=== PATIENT | male | born 1955 | race American Indian/Alaskan Native ===

== ENCOUNTER 2019-01-06 17:49 | Emergency (ER) | payer SELFPAY ==
--- NOTE | 2019-01-06 17:55 | Emergency Department Report ---
Blank Doc - Documentation Documentation: This is a 63-year-old male that presents with abdominal pain with radiation to back. This initial assessment/diagnostic orders/clinical plan/treatment(s) is/are subject to change based on patient's health status, clinical progression and re- assessment by fellow clinical providers in the ED. Further treatment and workup at subsequent clinical providers discretion. Patient/guardians urged not to elope from the ED as their condition may be serious if not clinically assessed and managed. Initial orders include: 1- Patient sent to main ed for further evaluation and treatment 2- labs 3- UA
[2019-01-06 17:57] VITALS: BP 136/80
[2019-01-06 18:28] LABS: Basophils % (Auto) 0.4 % (0.0-1.8); Eosinophils # (Auto) 0.3 K/mm3 (0.0-0.4); Eosinophils % (Auto) 2.8 % (0.0-4.3); Hematocrit 39.9 % (35.5-45.6); Hemoglobin 13.4 gm/dl (11.8-15.2); Lymphocytes # (Auto) 3.9 K/mm3 (1.2-5.4); Lymphocytes % (Auto) 39.3 % (13.4-35.0); Mean Corpuscular HGB Conc 34 % (32-34); Mean Corpuscular Volume 92 fl (84-94); Monocytes % (Auto) 10.1 % (0.0-7.3); Platelet Count 193 K/mm3 (140-440); Red Blood Count 4.32 M/mm3 (3.65-5.03); Red Cell Distribution Width 13.9 % (13.2-15.2)
[2019-01-06 18:44] LABS: Alanine Aminotransferase 10 units/L (7-56); Albumin 4.1 g/dL (3.9-5); BUN/Creatinine Ratio 18; Blood Urea Nitrogen 11 mg/dL (9-20); Calcium 9.6 mg/dL (8.4-10.2); Hemolysis Index 13
--- NOTE | 2019-01-06 21:52 | Emergency Department Report ---
ED General Adult HPI - General Chief complaint: Abdominal Pain Stated complaint: ABD PAIN Time Seen by Provider: 01/06/19 17:54 Source: patient, family Mode of arrival: Ambulatory Limitations: No Limitations - History of Present Illness Initial comments: She is a 63-year-old male that presents emergency room with complaints of abdominal pain. Patient states his abdominal pain started 2 days ago. Patient states is worsening. Patient states abdominal pain is a 6 out of 10. Patient states it's around the PEG tube. Patient denies redness around the PEG tube. Patient states he has not used the PEG tube because he is eating. . Patient states not seen a optical coating technician for the PEG tube yet. Patient denies fever and chills. Patient denies diarrhea. Patient denies nausea or vomiting. She also complains of seizure. Patient is not compliant with his medications. Patient states he ran out of all his medications one week ago. Patient states he has not seen a primary care since being discharged from the hospital in November. -: Sudden Location: abdomen Radiation: non-radiation Severity scale (0 -10): 6 Quality: aching Consistency: constant Improves with: rest Worsens with: movement Associated Symptoms: seizure. denies: confusion, chest pain, cough, diaphoresis, fever/chills, headaches, loss of appetite, malaise, nausea/vomiting, rash, shortness of breath, syncope, weakness - Related Data Previous Rx's Medication Instructions Recorded Last Taken Type levETIRAcetam [Keppra TAB] 500 mg PO BID #60 tablet 06/16/18 Unknown Rx Apixaban [Eliquis] 5 mg PO Q12HR #60 tablet 11/15/18 Unknown Rx Ipratropium/Albuterol Sulfate 1 ampul IH Q6HRT #120 ampul.neb 11/15/18 Unknown Rx [DUONEB *Not for PRN Use*] QUEtiapine [SEROquel] 50 mg PO BID 30 Days tablet 11/15/18 Unknown Rx QUEtiapine [SEROquel] 100 mg PO QHS #30 tablet 11/15/18 Unknown Rx dilTIAZem [Cardizem] 30 mg PO Q8HR #90 tablet 11/15/18 Unknown Rx guaiFENesin [Robitussin] 200 mg PO Q4H PRN 10 Days 11/15/18 Unknown Rx oral.liqd levETIRAcetam [Keppra TAB] 500 mg PO BID #60 tablet 11/15/18 Unknown Rx Allergies Allergy/AdvReac Type Severity Reaction Status Date / Time No Known Allergies Allergy Unverified 09/21/14 13:27 ED Review of Systems ROS: Stated complaint: ABD PAIN Other details as noted in HPI Constitutional: denies: chills, fever Eyes: denies: eye pain, eye discharge, vision change ENT: denies: ear pain, throat pain Respiratory: denies: cough, shortness of breath, wheezing Cardiovascular: denies: chest pain, palpitations Endocrine: no symptoms reported Gastrointestinal: abdominal pain. denies: nausea, diarrhea Genitourinary: denies: urgency, dysuria Musculoskeletal: denies: back pain, joint swelling, arthralgia Skin: denies: rash, lesions Neurological: denies: headache, weakness, paresthesias Psychiatric: denies: anxiety, depression Hematological/Lymphatic: denies: easy bleeding, easy bruising ED Past Medical Hx - Past Medical History Previous Medical History?: Yes Hx Deep Vein Thrombosis: No Hx Seizures: Yes - Surgical History Past Surgical History?: Yes Hx Pacemaker: No Hx Internal Defibrillator: No Additional Surgical History: right arm. PEG placement - Family History Family history: no significant - Social History Smoking Status: Current Every Day Smoker Substance Use Type: Alcohol - Medications Home Medications: Home Medications Medication Instructions Recorded Confirmed Last Taken Type levETIRAcetam [Keppra TAB] 500 mg PO BID #60 tablet 06/16/18 09/20/18 Unknown Rx Apixaban [Eliquis] 5 mg PO Q12HR #60 tablet 11/15/18 Unknown Rx Ipratropium/Albuterol Sulfate 1 ampul IH Q6HRT #120 ampul.neb 11/15/18 Unknown Rx [DUONEB *Not for PRN Use*] QUEtiapine [SEROquel] 50 mg PO BID 30 Days tablet 11/15/18 Unknown Rx QUEtiapine [SEROquel] 100 mg PO QHS #30 tablet 11/15/18 Unknown Rx dilTIAZem [Cardizem] 30 mg PO Q8HR #90 tablet 11/15/18 Unknown Rx guaiFENesin [Robitussin] 200 mg PO Q4H PRN 10 Days 11/15/18 Unknown Rx oral.liqd levETIRAcetam [Keppra TAB] 500 mg PO BID #60 tablet 11/15/18 Unknown Rx ED Physical Exam - General Limitations: No Limitations General appearance: alert, in no apparent distress - Head Head exam: Present: atraumatic, normocephalic - Eye Eye exam: Present: normal appearance - ENT ENT exam: Present: mucous membranes moist - Neck Neck exam: Present: normal inspection - Respiratory Respiratory exam: Present: normal lung sounds bilaterally. Absent: respiratory distress - Cardiovascular Cardiovascular Exam: Present: regular rate, normal rhythm. Absent: systolic murmur, diastolic murmur, rubs, gallop - GI/Abdominal GI/Abdominal exam: Present: soft, tenderness (tenderness around PEG tube and left upper quadrant), normal bowel sounds - Rectal Rectal exam: Present: deferred - Extremities Exam Extremities exam: Present: normal inspection - Back Exam Back exam: Present: normal inspection - Neurological Exam Neurological exam: Present: alert, oriented X3 - Psychiatric Psychiatric exam: Present: normal affect, normal mood - Skin Skin exam: Present: warm, dry, intact, normal color. Absent: rash ED Course Vital Signs 01/06/19 17:54 Temperature 99.2 F Pulse Rate 85 Respiratory 18 Rate Blood Pressure 136/80 [Left] O2 Sat by Pulse 99 Oximetry - Reevaluation(s) Reevaluation #1: Patient refused CT. Patient states is only here to have his PEG tube removed. Patient wants to leave the hospital. Patient signed AMA form. I explained risks to patient leaving the hospital AGAINST MEDICAL ADVICE. Patient voiced understanding. Patient is of sound mind and body. Patient is leaving the hospital AGAINST MEDICAL ADVICE. 01/06/19 23:01 ED Medical Decision Making - Lab Data Result diagrams: 01/06/19 18:04 01/06/19 18:04 - Medical Decision Making Is a 63-year-old male that presents emergency room with complaints of abdominal pain. Patient's abdominal pain around days PEG tube and left upper quadrant. Patient refused CT evaluation. Patient stated he only came to the emergency room to have his PEG tube removed. I informed the patient that we are not able to PEG tube he needs to see a optical coating technician. Patient left the hospital AGAINST MEDICAL ADVICE. I discussed the risks fully with patient. Patient voiced understanding of risks. Patient signed AMA form. Patient's labs unremarkable. H also presented to the hospital for seizure activity. Patient has history of seizure. Patient has not been compliant with his medications. - Differential Diagnosis PEG tube tenderness. Gastritis. Abdominal pain. Critical care attestation.: If time is entered above; I have spent that time in minutes in the direct care o f this critically ill patient, excluding procedure time. ED Disposition Clinical Impression: Seizure, Noncompliance Abdominal pain Qualifiers: Abdominal location: left upper quadrant Qualified Code(s): R10.12 - Left upper quadrant pain Pain around PEG tube site Qualifiers: Encounter type: initial encounter Qualified Code(s): T85.848A - Pain due to other internal prosthetic devices, implants and grafts, initial encounter Disposition: LEFT AGAINST MED ADVICE Is pt being admited?: No Does the pt Need Aspirin: No Condition: Stable Instructions: Percutaneous Endoscopic Gastrostomy Insertion (GEN) Additional Instructions: patient to follow-up with primary care in 2-3 days. Patient to return to ER if condition worsens. Patient to follow up with GI as soon as possible. Patient to rest. Patient to increase water. Referrals: PRIMARY CARE [Primary Care Provider] - 2-3 Days Forms: AMA Form Time of Disposition: 23:15
== END 2019-01-06 23:22 | disposition left against medical advice (07) ==
LOC: ED 17:49
DX: T85.848A Pain due to other internal prosthetic devices, implants and grafts, initial encounter (principal); R10.12 Left upper quadrant pain; R56.9 Unspecified convulsions; F17.200 Nicotine dependence, unspecified, uncomplicated; Y92.89 Other specified places as the place of occurrence of the external cause
CPT/HCPCS: 36415; 80053; 83690; 85025

== ENCOUNTER 2019-10-09 15:41 | Emergency (ER) | payer SELFPAY ==
[2019-10-09] MEDS ORDERED: SODIUM CHLORIDE 0.9% 1000 ML 1,000 ML IV ONE (17:04)
[2019-10-09] MEDS ORDERED: levETIRAcetam 1000 MG/NS 0.75% 1,000 MG/100 ML BAG IV ONE (17:04)
--- NOTE | 2019-10-09 17:10 | Emergency Department Report ---
ED Seizure HPI - General Chief Complaint: Seizure Stated Complaint: SEIZURES Time Seen by Provider: 10/09/19 17:02 Source: patient Mode of arrival: Ambulatory Limitations: No Limitations - History of Present Illness Initial Comments: Patient is 64 years old male with history of seizure. Patient brought to the emergency room via EMS from a parking lot of a gas station after patient started having a seizure witnessed by bystander. EMS stated that when arrived patient was postictal. Patient is currently alert and oriented. Patient stated that he is homeless. He said he is not taking any medication. I reviewed patient records from his last admission. Patient was admitted at bedtime for bilateral pneumonia with acute respiratory failure that required intubation. Patient have a PEG tube in place but stated that he is not using it much. Patient denied any fever or chills. He also denied any chest pain, shortness of breath, cough, runny nose or congestion. MD Complaint: seizure -: Sudden Description of Episode: loss of consciousness, tonic-clonic movement, post-event confusion Witnessed:: Yes Seizure History: known seizure disorder Place: street/outdoors - Related Data Previous Rx's Medication Instructions Recorded Last Taken Type levETIRAcetam [Keppra TAB] 500 mg PO BID #60 tablet 06/16/18 Unknown Rx Apixaban [Eliquis] 5 mg PO Q12HR #60 tablet 11/15/18 Unknown Rx Ipratropium/Albuterol Sulfate 1 ampul IH Q6HRT #120 ampul.neb 11/15/18 Unknown Rx [DUONEB *Not for PRN Use*] QUEtiapine [SEROquel] 50 mg PO BID 30 Days tablet 11/15/18 Unknown Rx QUEtiapine [SEROquel] 100 mg PO QHS #30 tablet 11/15/18 Unknown Rx dilTIAZem [Cardizem] 30 mg PO Q8HR #90 tablet 11/15/18 Unknown Rx guaiFENesin [Robitussin] 200 mg PO Q4H PRN 10 Days 11/15/18 Unknown Rx oral.liqd levETIRAcetam [Keppra TAB] 500 mg PO BID #60 tablet 11/15/18 Unknown Rx Allergies Allergy/AdvReac Type Severity Reaction Status Date / Time No Known Allergies Allergy Unverified 09/21/14 13:27 ED Review of Systems ROS: Stated complaint: SEIZURES Other details as noted in HPI Comment: All other systems reviewed and negative Constitutional: denies: chills, fever Respiratory: denies: cough, shortness of breath, SOB with exertion, SOB at rest, wheezing Cardiovascular: denies: chest pain, palpitations Gastrointestinal: denies: abdominal pain, nausea, vomiting, diarrhea, constipation, hematemesis, melena, hematochezia Musculoskeletal: denies: back pain Neurological: denies: headache, weakness, numbness, paresthesias, confusion, abnormal gait ED Past Medical Hx - Past Medical History Previous Medical History?: Yes Hx Deep Vein Thrombosis: No Hx Seizures: Yes - Surgical History Past Surgical History?: Yes Hx Pacemaker: No Hx Internal Defibrillator: No Additional Surgical History: right arm. PEG placement - Social History Smoking Status: Never Smoker Substance Use Type: None - Medications Home Medications: Home Medications Medication Instructions Recorded Confirmed Last Taken Type levETIRAcetam [Keppra TAB] 500 mg PO BID #60 tablet 06/16/18 09/20/18 Unknown Rx Apixaban [Eliquis] 5 mg PO Q12HR #60 tablet 11/15/18 Unknown Rx Ipratropium/Albuterol Sulfate 1 ampul IH Q6HRT #120 ampul.neb 11/15/18 Unknown Rx [DUONEB *Not for PRN Use*] QUEtiapine [SEROquel] 50 mg PO BID 30 Days tablet 11/15/18 Unknown Rx QUEtiapine [SEROquel] 100 mg PO QHS #30 tablet 11/15/18 Unknown Rx dilTIAZem [Cardizem] 30 mg PO Q8HR #90 tablet 11/15/18 Unknown Rx guaiFENesin [Robitussin] 200 mg PO Q4H PRN 10 Days 11/15/18 Unknown Rx oral.liqd levETIRAcetam [Keppra TAB] 500 mg PO BID #60 tablet 11/15/18 Unknown Rx ED Physical Exam - General Limitations: No Limitations General appearance: alert, in no apparent distress - Head Head exam: Present: atraumatic, normocephalic, normal inspection - Eye Eye exam: Present: normal appearance - ENT ENT exam: Present: normal exam, normal orophraynx, mucous membranes moist - Neck Neck exam: Present: normal inspection, full ROM, other (Tracheostomy scar.). Absent: tenderness, meningismus - Respiratory Respiratory exam: Present: normal lung sounds bilaterally - Cardiovascular Cardiovascular Exam: Present: regular rate, normal rhythm, normal heart sounds - GI/Abdominal GI/Abdominal exam: Present: soft, normal bowel sounds, other (PEG tube in place, no erythema or discharge.). Absent: distended, tenderness, guarding, rebound, rigid, organomegaly, mass, bruit, pulsatile mass, hernia - Extremities Exam Extremities exam: Present: normal inspection, full ROM, normal capillary refill - Back Exam Back exam: Present: normal inspection, full ROM. Absent: CVA tenderness (R), CVA tenderness (L) - Neurological Exam Neurological exam: Present: alert, oriented X3, CN II-XII intact ED Course Vital Signs 10/09/19 16:10 Temperature 97.4 F L Pulse Rate 88 Respiratory 16 Rate Blood Pressure 140/85 [Right] O2 Sat by Pulse 97 Oximetry Critical care attestation.: If time is entered above; I have spent that time in minutes in the direct care of this critically ill patient, excluding procedure time. ED Disposition Clinical Impression: Seizure Disposition: [id number] LEFT AGAINST MED ADVICE Is pt being admited?: No Condition: Stable Referrals: PRIMARY CARE, [Primary Care Provider] - 3-5 Days Forms: AMA Form
[2019-10-09 17:24] VITALS: BP 140/85
== END 2019-10-09 18:02 | disposition left against medical advice (07) ==
LOC: ED 15:41
DX: R56.9 Unspecified convulsions (principal); Z79.899 Other long term (current) drug therapy
CPT/HCPCS: 70450; 71045; 93005; 99284; J1953; J7030

== ENCOUNTER 2020-01-12 23:40 | Emergency (ER) | payer SELFPAY ==
[2020-01-13 03:38] LABS: Basophils # (Auto) 0.1 K/mm3 (0.0-0.1); Basophils % (Auto) 0.8 % (0.0-1.8); Eosinophils # (Auto) 0.1 K/mm3 (0.0-0.4); Eosinophils % (Auto) 2.1 % (0.0-4.3); Hematocrit 42.3 % (35.5-45.6); Lymphocytes # (Auto) 3.1 K/mm3 (1.2-5.4); Lymphocytes % (Auto) 45.4 % (13.4-35.0); Mean Corpuscular HGB Conc 33 % (32-34); Mean Corpuscular Volume 103 fl (84-94); Monocytes # (Auto) 0.6 K/mm3 (0.0-0.8); Monocytes % (Auto) 8.6 % (0.0-7.3); Platelet Count 168 K/mm3 (140-440); Red Blood Count 4.12 M/mm3 (3.65-5.03)
--- NOTE | 2020-01-13 03:45 | Cat Scan Report ---
CT HEAD WITHOUT CONTRAST HISTORY: Patient states he fell today. COMPARISON: 10/09/2019 TECHNIQUE: CT imaging of the head was performed in the axial, sagittal, and coronal projections and bone algori thm in axial projection in the soft tissue algorithm. All CT scans at this location are performed using CT dose reduction for ALARA by means of automated e xposure control. CONTRAST: None. FINDINGS: Cerebral and Cerebellar Hemispheres: No evidence of mass or mass effect. No midline shift. No acute hemorrhage. No acute cortical infarction. No extra-axial fluid collection. Ventricles: Normal in size and configuration for age. Osseous Structures: No significant abnormality. Visualized Paranasal Sinuses: No significant abnormality. Additional Findings: None IMPRESSION: 1. No acute intracranial abnormality. NOTE: Acute infarct may not be visible by noncontrast CT. Signer Name: Andreas Whittington MD Signed: 01/13/2020 3:41 AM Workstation Name: [id number]
[2020-01-13 03:46] LABS: Alanine Aminotransferase 80 units/L (7-56); Albumin 4.8 g/dL (3.9-5); BUN/Creatinine Ratio 14; Blood Urea Nitrogen 11 mg/dL (9-20); Calcium 9.4 mg/dL (8.4-10.2); Hemolysis Index 48
--- NOTE | 2020-01-13 03:49 | Cat Scan Report ---
CLINICAL DATA: Patient states he fell today. TECHNICAL DATA: CT imaging of the cervical spine was performed in the axial, sagittal, and coronal projections and jan ne algorithm in axial projection in the soft tissue algorithm. All CT scans at this location are performed using CT dose reduction for ALARA by means of automated e xposure control. FINDINGS: The ring of C1 is normal. The odontoid is normal. There is no evidence of an offset. There is no e vidence of a fracture. However, degenerative changes are present with narrowing of the C1 odontoid j unction. The spinal canal is well maintained. C2-C3: The spinal canal is well maintained. The neural foramina are normal. The vertebral bodies a re normal. The posterior elements are intact. There is no evidence of a fracture. C3-C4: The spinal canal is well maintained. The neural foramina narrowing is present on the left Th e vertebral bodies are normal. The posterior elements are intact. There is no evidence of a fractur e. C4-C5: Marked intervertebral disc space narrowing is present with anterior and posterior osteophytes . The spinal canal is well maintained. Moderate neural foraminal narrowing is present The vertebral bodies are normal. The posterior elements are intact. There is no evidence of a fracture. C5-C6: The spinal canal is well maintained. The neural foramina are normal. The vertebral bodies a re normal. The posterior elements are intact. There is no evidence of a fracture. C6-C7: The spinal canal is well maintained. The neural foramina are normal. The vertebral bodies a re normal. The posterior elements are intact. There is no evidence of a fracture. C7-T1: The spinal canal is well maintained. The neural foramina are normal. The vertebral bodies a re normal. The posterior elements are intact. There is no evidence of a fracture. IMPRESSION: No acute traumatic abnormality. Degenerative changes as noted. Signer Name: Andreas Whittington MD Signed: 01/13/2020 3:44 AM Workstation Name: [id number]
--- NOTE | 2020-01-13 05:57 | XRay Report ---
CHEST 1 VIEW INDICATION: AMS COMPARISON: 10/09/2019 FINDINGS: SUPPORT DEVICES: None. HEART / MEDIASTINUM: No significant abnormality. LUNGS / PLEURA: Persistent prominent bronchovascular markings. No significant pulmonary or pleural ab normality. No pneumothorax. ADDITIONAL FINDINGS: IMPRESSION: 1. No acute cardiopulmonary disease Signer Name: Andreas Whittington MD Signed: 01/13/2020 5:52 AM Workstation Name: [id number]
--- NOTE | 2020-01-13 08:51 | Emergency Department Report ---
ED Fall HPI - General Chief Complaint: Abdominal Pain Stated Complaint: ABD PAIN/HEADACHE Time Seen by Provider: 01/13/20 08:18 Source: patient, EMS Mode of arrival: Stretcher - History of Present Illness Initial Comments: 64-year-old male with a past medical history of alcohol abuse and seizures presents to the hospital with acute alcohol intoxication and signs of facial trauma. [place] abrasions to the face. Patient intoxicated upon arrival. At time of my evaluation patient had been in the ER for several hours. He complains of chronic and persistent pain around left take site and is requesting for it to be removed. He states PEG was placed several months ago. Patient has abrasions to forehead and signs of facial trauma. He states he has received a tetanus within the last 10 years. He denies headache, nausea, vomiting, or neck pain - Related Data Previous Rx's Medication Instructions Recorded Last Taken Type levETIRAcetam [Keppra TAB] 500 mg PO BID #60 tablet 06/16/18 Unknown Rx Apixaban [Eliquis] 5 mg PO Q12HR #60 tablet 11/15/18 Unknown Rx Ipratropium/Albuterol Sulfate 1 ampul IH Q6HRT #120 ampul.neb 11/15/18 Unknown Rx [DUONEB *Not for PRN Use*] QUEtiapine [SEROquel] 50 mg PO BID 30 Days tablet 11/15/18 Unknown Rx QUEtiapine [SEROquel] 100 mg PO QHS #30 tablet 11/15/18 Unknown Rx dilTIAZem [Cardizem] 30 mg PO Q8HR #90 tablet 11/15/18 Unknown Rx guaiFENesin [Robitussin] 200 mg PO Q4H PRN 10 Days 11/15/18 Unknown Rx oral.liqd levETIRAcetam [Keppra TAB] 500 mg PO BID #60 tablet 11/15/18 Unknown Rx Amoxicillin [Trimox CAP] 500 mg PO Q8H #21 capsule 01/13/20 Unknown Rx Pseudoephedrine ER [Sudafed 12 Hr] 120 mg PO BID PRN #14 tablet.er 01/13/20 Unknown Rx Allergies Allergy/AdvReac Type Severity Reaction Status Date / Time No Known Allergies Allergy Unverified 09/21/14 13:27 ED Review of Systems ROS: Stated complaint: ABD PAIN/HEADACHE Other details as noted in HPI Comment: All other systems reviewed and negative ED Past Medical Hx - Past Medical History Previous Medical History?: Yes Hx Deep Vein Thrombosis: No Hx Seizures: Yes Additional medical history: PEG tube - Surgical History Past Surgical History?: Yes Hx Pacemaker: No Hx Internal Defibrillator: No Additional Surgical History: right arm. PEG placement - Social History Smoking Status: Current Every Day Smoker Substance Use Type: Alcohol - Medications Home Medications: Home Medications Medication Instructions Recorded Confirmed Last Taken Type levETIRAcetam [Keppra TAB] 500 mg PO BID #60 tablet 06/16/18 09/20/18 Unknown Rx Apixaban [Eliquis] 5 mg PO Q12HR #60 tablet 11/15/18 Unknown Rx Ipratropium/Albuterol Sulfate 1 ampul IH Q6HRT #120 ampul.neb 11/15/18 Unknown Rx [DUONEB *Not for PRN Use*] QUEtiapine [SEROquel] 50 mg PO BID 30 Days tablet 11/15/18 Unknown Rx QUEtiapine [SEROquel] 100 mg PO QHS #30 tablet 11/15/18 Unknown Rx dilTIAZem [Cardizem] 30 mg PO Q8HR #90 tablet 11/15/18 Unknown Rx guaiFENesin [Robitussin] 200 mg PO Q4H PRN 10 Days 11/15/18 Unknown Rx oral.liqd levETIRAcetam [Keppra TAB] 500 mg PO BID #60 tablet 11/15/18 Unknown Rx Amoxicillin [Trimox CAP] 500 mg PO Q8H #21 capsule 01/13/20 Unknown Rx Pseudoephedrine ER [Sudafed 12 Hr] 120 mg PO BID PRN #14 tablet.er 01/13/20 Unknown Rx ED Physical Exam - General Limitations: Other - Other Other exam information: General: No acute distress Head: Multiple facial abrasions Eyes: Right orbital tenderness with right upper lid swelling, extraocular was intact posterior equals reactive to light ENT: Moist mucous membranes Neck: Normal appearance, no midline tenderness Chest: Clear to auscultation bilaterally CV: Regular rate and rhythm Abdomen: Soft, normal bowel sounds, left upper abdomen feeding tube with tenderness at the insertion site without erythema, nondistended, no rebound or guarding Back: Normal inspection Extremity: Normal inspection, full range of motion Neuro: Alert O x 3, no facial asymmetry, speech clear, no gross motor sensory deficit Psych: Appropriate behavior Skin: No rash ED Course Vital Signs 01/13/20 01/13/20 01/13/20 02:23 08:18 08:30 Temperature 98.3 F Pulse Rate 85 72 Respiratory 18 14 Rate Blood Pressure 99/64 122/78 O2 Sat by Pulse 100 94 95 Oximetry 01/13/20 01/13/20 01/13/20 09:00 09:30 10:00 Temperature Pulse Rate 88 75 63 Respiratory 13 15 11 L Rate Blood Pressure 133/79 133/75 139/79 O2 Sat by Pulse 95 92 95 Oximetry 01/13/20 01/13/20 10:30 11:00 Temperature Pulse Rate 67 77 Respiratory 12 12 Rate Blood Pressure 134/77 118/83 O2 Sat by Pulse 98 88 Oximetry ED Medical Decision Making - Lab Data Result diagrams: 01/13/20 02:39 01/13/20 02:39 Lab Results 01/13/20 01/13/20 01/13/20 Range/Units 02:39 02:39 02:39 WBC 6.9 (4.5-11.0) K/mm3 RBC 4.12 (3.65-5.03) M/mm3 Hgb 14.0 (11.8-15.2) gm/dl Hct 42.3 (35.5-45.6) % MCV 103 H (84-94) fl MCH 34 H (28-32) pg MCHC 33 (32-34) % RDW 17.0 H (13.2-15.2) % Plt Count 168 (140-440) K/mm3 Lymph % (Auto) 45.4 H (13.4-35.0) % Owen % (Auto) 8.6 H (0.0-7.3) % Eos % (Auto) 2.1 (0.0-4.3) % Baso % (Auto) 0.8 (0.0-1.8) % Lymph # 3.1 (1.2-5.4) K/mm3 Owen # 0.6 (0.0-0.8) K/mm3 Eos # 0.1 (0.0-0.4) K/mm3 Baso # 0.1 (0.0-0.1) K/mm3 Seg Neutrophils % 43.1 (40.0-70.0) % Seg Neutrophils # 3.0 (1.8-7.7) K/mm3 Sodium 139 (137-145) mmol/L Potassium 4.4 (3.6-5.0) mmol/L Chloride 100.2 (98-107) mmol/L Carbon Dioxide 18 L (22-30) mmol/L Anion Gap 25 mmol/L BUN 11 (9-20) mg/dL Creatinine 0.8 (0.8-1.3) mg/dL Estimated GFR > 60 ml/min BUN/Creatinine Ratio 14 % Glucose 76 (75-100) mg/dL Calcium 9.4 (8.4-10.2) mg/dL Total Bilirubin 0.50 (0.1-1.2) mg/dL AST 188 H (5-40) units/L ALT 80 H (7-56) units/L Alkaline Phosphatase 102 (35-129) units/L Troponin T (0.00-0.029) ng/mL NT-Pro-B Natriuret Pep (0-900) pg/mL Total Protein 8.4 H (6.3-8.2) g/dL Albumin 4.8 (3.9-5) g/dL Albumin/Globulin Ratio 1.3 % Plasma/Serum Alcohol 0.32 H (0-0.07) % 01/13/20 Range/Units 05:21 WBC (4.5-11.0) K/mm3 RBC (3.65-5.03) M/mm3 Hgb (11.8-15.2) gm/dl Hct (35.5-45.6) % MCV (84-94) fl MCH (28-32) pg MCHC (32-34) % RDW (13.2-15.2) % Plt Count (140-440) K/mm3 Lymph % (Auto) (13.4-35.0) % Owen % (Auto) (0.0-7.3) % Eos % (Auto) (0.0-4.3) % Baso % (Auto) (0.0-1.8) % Lymph # (1.2-5.4) K/mm3 Owen # (0.0-0.8) K/mm3 Eos # (0.0-0.4) K/mm3 Baso # (0.0-0.1) K/mm3 Seg Neutrophils % (40.0-70.0) % Seg Neutrophils # (1.8-7.7) K/mm3 Sodium (137-145) mmol/L Potassium (3.6-5.0) mmol/L Chloride (98-107) mmol/L Carbon Dioxide (22-30) mmol/L Anion Gap mmol/L BUN (9-20) mg/dL Creatinine (0.8-1.3) mg/dL Estimated GFR ml/min BUN/Creatinine Ratio % Glucose (75-100) mg/dL Calcium (8.4-10.2) mg/dL Total Bilirubin (0.1-1.2) mg/dL AST (5-40) units/L ALT (7-56) units/L Alkaline Phosphatase (35-129) units/L Troponin T < 0.010 (0.00-0.029) ng/mL NT-Pro-B Natriuret Pep 154.8 (0-900) pg/mL Total Protein (6.3-8.2) g/dL Albumin (3.9-5) g/dL Albumin/Globulin Ratio % Plasma/Serum Alcohol (0-0.07) % - EKG Data -: EKG Interpreted by Pa EKG shows normal: sinus rhythm, ST-T waves (NO STEMI) Rate: normal (72) - Radiology Data Radiology results: report reviewed CT ABDOMEN AND PELVIS WITHOUT CONTRAST INDICATION / CLINICAL INFORMATION: MAIN. TECHNIQUE: Axial CT images were obtained through the abdomen and pelvis without IV contrast. All CT scans at this location are performed using CT dose reduction for ALARA by means of automated exposure control. COMPARISON: CT abdomen pelvis 09/19/2018 FINDINGS: LOWER CHEST: Bibasilar emphysema. Coronary artery atherosclerotic calcification. HEPATOBILIARY: Diffuse hepatic steatosis. No significant biliary abnormality. PANCREAS: No significant abnormality. SPLEEN: No significant abnormality. ADRENALS: No significant abnormality. GENITOURINARY: No significant abnormality. GASTROINTESTINAL/MESENTERY: No bowel obstruction or inflammation. Appendix is unremarkable. PEG tube is inflated in the body of the stomach. Scattered attenuation is present in the PEG tube balloon. No significant free air or free fluid. RETROPERITONEUM: No significant adenopathy. REPRODUCTIVE ORGANS: No significant abnormality. VASCULAR: Severe atherosclerotic calcification without acute abnormality. SKELETAL SYSTEM: No significant abnormality. ADDITIONAL FINDINGS: No significant abnormality. IMPRESSION: 1. No acute abdominopelvic pathology. 2. PEG tube in place in the stomach body with scattered attenuation present in the PEG tube balloon. Clinical significance is undetermined, consider correlation and further follow-up as warranted. 3. Bibasilar emphysema. 4. Hepatic steatosis. CT HEAD WITHOUT CONTRAST HISTORY: Patient states he fell today. COMPARISON: 10/09/2019 TECHNIQUE: CT imaging of the head was performed in the axial, sagittal, and coronal projections and bone algorithm in axial projection in the soft tissue algorithm. All CT scans at this location are performed using CT dose reduction for ALARA by means of automated exposure control. CONTRAST: None. FINDINGS: Cerebral and Cerebellar Hemispheres: No evidence of mass or mass effect. No midline shift. No acute hemorrhage. No acute cortical infarction. No extra-axial fluid collection. Ventricles: Normal in size and configuration for age. Osseous Structures: No significant abnormality. Visualized Paranasal Sinuses: No significant abnormality. Additional Findings: None IMPRESSION: 1. No acute intracranial abnormality. NOTE: Acute infarct may not be visible by noncontrast CT. CLINICAL DATA: Patient states he fell today. TECHNICAL DATA: CT imaging of the cervical spine was performed in the axial, sagittal, and coronal projections and bone algorithm in axial projection in the soft tissue algorithm. All CT scans at this location are performed using CT dose reduction for ALARA by means of automated exposure control. FINDINGS: The ring of C1 is normal. The odontoid is normal. There is no evidence of an offset. There is no evidence of a fracture. However, degenerative changes are present with narrowing of the C1 odontoid junction. The spinal canal is well maintained. C2-C3: The spinal canal is well maintained. The neural foramina are normal. The vertebral bodies are normal. The posterior elements are intact. There is no evidence of a fracture. C3-C4: The spinal canal is well maintained. The neural foramina narrowing is present on the left The vertebral bodies are normal. The posterior elements are intact. There is no evidence of a fracture. C4-C5: Marked intervertebral disc space narrowing is present with anterior and posterior osteophytes. The spinal canal is well maintained. Moderate neural foraminal narrowing is present The vertebral bodies are normal. The posterior elements are intact. There is no evidence of a fracture. C5-C6: The spinal canal is well maintained. The neural foramina are normal. The vertebral bodies are normal. The posterior elements are intact. There is no evidence of a fracture. C6-C7: The spinal canal is well maintained. The neural foramina are normal. The vertebral bodies are normal. The posterior elements are intact. There is no evidence of a fracture. C7-T1: The spinal canal is well maintained. The neural foramina are normal. The vertebral bodies are normal. The posterior elements are intact. There is no evidence of a fracture. IMPRESSION: No acute traumatic abnormality. Degenerative changes as noted. CHEST 1 VIEW INDICATION: AMS COMPARISON: 10/09/2019 FINDINGS: SUPPORT DEVICES: None. HEART / MEDIASTINUM: No significant abnormality. LUNGS / PLEURA: Persistent prominent bronchovascular markings. No significant pulmonary or pleural abnormality. No pneumothorax. ADDITIONAL FINDINGS: IMPRESSION: 1. No acute cardiopulmonary disease CT facial bones wo con INDICATION: Facial injury TECHNIQUE: CT face. All CT scans at this location are performed using CT dose reduction for ALARA by means of automated exposure control. COMPARISON: CT scan of the facial bones from 09/21/2014 FINDINGS: Facial bones: Central midface: Nasal bones: Soft tissue swelling is seen more on the right side of the nose. However, right nasal bone is normal. Bony remodeling is seen in the left nasal bone probably from old fracture. Nasal pyramid: Normal Perpendicular plate of ethmoid: Fracture anteriorly in the perpendicular plate of ethmoid; anterior nasal spine is normal; soft tissue swelling along the septal cartilage anteriorly Nasoorbitoethmoid: Normal Lateral midface: Orbit: Normal; no blowout or blow-in fractures fractures Zygomaticomaxillary complex:: Normal Zygomatic arch: Normal Mandible: TMJ: Normal Sinuses: Paranasal sinuses and mastoid air cells are essentially clear. Orbits: Globes are intact. Additional findings:No other significant abnormality. IMPRESSION: Fracture in the perpendicular plate of ethmoid; soft tissue swelling around the nasal cartilage; right nasal bone is normal however, soft tissue swelling seen over the right side of the nose - Medical Decision Making Patient presents here with acute intoxication and signs of trauma. Imaging studies positive for ethmoid bone orbital fracture. Patient will be treated empirically with antibiotics and decongestant. Outpatient follow-up with [place] [facility] advised Critical Care Time: No Critical care attestation.: If time is entered above; I have spent that time in minutes in the direct care of this critically ill patient, excluding procedure time. ED Disposition Clinical Impression: Fracture of ethmoid bone, Fall, Alcohol intoxication Disposition: TO HOME OR SELFCARE Is pt being admited?: No Does the pt Need Aspirin: No Condition: Stable Instructions: Facial Fracture (ED) Additional Instructions: Take the medication as prescribed. Try to avoid blowing your nose and use the prescribed Sudafed decongestion as needed for nasal congestion. Follow-up with your doctor or doctor/clinic provided. Return if symptoms worsen as indicated by your discharge instructions. Prescriptions: Pseudoephedrine ER [Sudafed 12 Hr] 120 mg PO BID PRN #14 tablet.er PRN Reason: Nasal Congestion Amoxicillin [Trimox CAP] 500 mg PO Q8H #21 capsule Referrals: MADDIE JOHNSON MD [Primary Care Provider] - 3-5 Days [facility] [Outside] - 3-5 Days (call [place] to make an ENT (ear nose and throat) doctor appointment regarding ethomid bone fracture.) Time of Disposition: 12:18
--- NOTE | 2020-01-13 09:50 | Cat Scan Report ---
CT facial bones wo con INDICATION: Facial injury TECHNIQUE: CT face. All CT scans at this location are performed using CT dose reduction for ALARA by means of automated exposure control. COMPARISON: CT scan of the facial bones from 09/21/2014 FINDINGS: Facial bones: Central midface: Nasal bones: Soft tissue swelling is seen more on the right side of the nose. However, right nasal bone is normal. Bony remodeling is seen in the left nasal bone probably from old fracture. Nasal pyramid: Normal Perpendicular plate of ethmoid: Fracture anteriorly in the perpendicular plate of ethmoid; ant erior nasal spine is normal; soft tissue swelling along the septal cartilage anteriorly Nasoorbitoethmoid: Normal Lateral midface: Orbit: Normal; no blowout or blow-in fractures fractures Zygomaticomaxillary complex:: Normal Zygomatic arch: Normal Mandible: TMJ: Normal Sinuses: Paranasal sinuses and mastoid air cells are essentially clear. Orbits: Globes are intact. Additional findings:No other significant abnormality. IMPRESSION: Fracture in the perpendicular plate of ethmoid; soft tissue swelling around the nasal cartilage; righ t nasal bone is normal however, soft tissue swelling seen over the right side of the nose Signer Name: Mckenzie Morales MD Signed: 01/13/2020 9:45 AM Workstation Name: [id number]
--- NOTE | 2020-01-13 09:53 | Cat Scan Report ---
CT ABDOMEN AND PELVIS WITHOUT CONTRAST INDICATION / CLINICAL INFORMATION: MAIN. TECHNIQUE: Axial CT images were obtained through the abdomen and pelvis without IV contrast. All CT scans at [facility] location are performed using CT dose reduction for ALARA by means of automated exposure control. COMPARISON: CT abdomen pelvis 09/19/2018 FINDINGS: LOWER CHEST: Bibasilar emphysema. Coronary artery atherosclerotic calcification. HEPATOBILIARY: Diffuse hepatic steatosis. No significant biliary abnormality. PANCREAS: No significant abnormality. SPLEEN: No significant abnormality. ADRENALS: No significant abnormality. GENITOURINARY: No significant abnormality. GASTROINTESTINAL/MESENTERY: No bowel obstruction or inflammation. Appendix is unremarkable. PEG tube is inflated in the body of the stomach. Scattered attenuation is present in the PEG tube balloon. No significant free air or free fluid. RETROPERITONEUM: No significant adenopathy. REPRODUCTIVE ORGANS: No significant abnormality. VASCULAR: Severe atherosclerotic calcification without acute abnormality. SKELETAL SYSTEM: No significant abnormality. ADDITIONAL FINDINGS: No significant abnormality. IMPRESSION: 1. No acute abdominopelvic pathology. 2. PEG tube in place in the stomach body with scattered attenuation present in the PEG tube balloon. Clinical significance is undetermined, consider correlation and further follow-up as warranted. 3. Bibasilar emphysema. 4. Hepatic steatosis. Report dictated by: Miguel A Kingsley MD Report dictated on: 01/13/2020 8:47 AM I have reviewed the images, agree with this report, and edited this report as needed. Signer Name: Miguel A Kingsley MD Signed: 01/13/2020 9:48 AM Workstation Name: [id number]
[2020-01-13 12:56] VITALS: BP 136/79
== END 2020-01-13 13:49 | disposition home or self-care (01) ==
LOC: ED 23:40
DX: S02.19XA Other fracture of base of skull, initial encounter for closed fracture (principal); F17.200 Nicotine dependence, unspecified, uncomplicated; Z79.899 Other long term (current) drug therapy; F10.129 Alcohol abuse with intoxication, unspecified; X58.XXXA Exposure to other specified factors, initial encounter; Y93.89 Activity, other specified; Y92.89 Other specified places as the place of occurrence of the external cause; Y99.8 Other external cause status
CPT/HCPCS: 36415; 70450; 70486; 71045; 72125; 74176; 80053; 80320; 83880; 84484; 85025; 93005; G0480